=== PATIENT | female | born 1980 | race African-American/Black ===

== ENCOUNTER 2017-09-18 12:00 | Emergency (ER) | payer OTHER ==
[~2017-09-18] VITALS: Ht 182.9 cm; Wt 61.2 kg
[~2017-09-18 12:00] MED LIST: AZITHROMYCIN250 MG ORAL; CLINDAMYCIN HC300 MG ORAL; CORTISPORIN EAR10 ML OTIC; IBUPROFEN600 MG ORAL; NKM; PROMETH-CODEIN 65 ML PO; TYLENOL325 MG ORAL
--- NOTE | 2017-09-18 12:30 | Emergency Room Report ---
History of Present Illness General Chief Complaint: Upper Respiratory Illness Present Illness HPI 37 yo female patient presents to ER complaining of cough, ear pain, and dysuria x1 week. Patient reports subjective fever and chills for the "past few days." Reports taking Theraflu and Mucinex for the "past few days". Reports dry cough; denies blood in sputum. Reports chest pain following cough; reports chest pain is reproducible; denies hx of IN, cardiovascular disease, asthma, or PE. Reports frequency, urgency. Denies blood in urine, rash, discharge, or foul smell. Denies SOB, FERGUSON, vision changes, tinnitus. Reports hx of sick contacts. Denies diarrhea, vomiting, rash. Denies recent travel. LMP on August 24, normal for her. Sexually monogamous partner for 12 years, no hx STI, two miscarriages. Allergies: Coded Allergies: PENICILLIN (Verified Allergy, Unknown, 04/15/15) Patient History Past Medical History: see triage record Last Menstrual Period: Aug Reviewed Nursing Documentation: PMH: Agreed, PSxH: Agreed Nursing Documentation-PMH Hx Gastrointestinal Problems: Yes Review of Systems All Other Systems: negative except mentioned in HPI Physical Exam Vital Signs Date Time Temp Pulse Resp B/P (MAP) Pulse Ox O2 Delivery O2 Flow Rate FiO2 09/18/17 12:15 98.2 102 18 136/95 99 Room Air 98.2 Sp02 EP Interpretation: reviewed, normal General Appearance: well appearing, no apparent distress, alert, GCS 15 Head: normocephalic, atraumatic Eyes: bilateral eye normal inspection, bilateral eye PERRL ENT: hearing grossly normal, normal pharynx, no angioedema, normal voice, TMs + canals normal, uvula midline, moist mucus membranes, other - right ear cerumen Neck: full range of motion Respiratory: lungs clear, normal breath sounds, no rhonchi, no respiratory distress, no accessory muscle use, no wheezing, speaking full sentences, other Cardiovascular #1: regular rate, rhythm, no edema Gastrointestinal: non tender, soft, no mass, non-distended, no guarding, no rebound Genitourinary: no CVA tenderness Musculoskeletal: back normal, digits/nails normal, gait/station normal, normal range of motion, non-tender Neurologic: alert, oriented x3, responsive, motor strength/tone normal, sensory intact Psychiatric: mood/affect normal Skin: no rash Lymphatic: no adenopathy Medical Decision Making PA Attestation Dr. Darnell is my supervising Physician whom patient management has been discussed with. Diagnostic Impression: Primary Impression: Dysuria Additional Impressions: Upper respiratory infection Cerumen impaction ER Course Pt presents to ED c/o cough, ear ache, and dysuria. DDX considered but are not limited to influenza, viral URI, strep throat, rhinitis, sinusitis, otitis media, cerumen impaction, UTI. VITAL SIGNS are WNL, patient is afebrile. Patient pulse is 102. On PE, chest is TTP; chest pain likely musculoskeletal in nature secondary to cough, does not require cardiac workup at this time. Patient instructed to take NSAIDs as needed for pain symptoms. Ordered UA and pain medication. Ordered hydrogen peroxide and flushed ear with water. Cerumen still present, able to visualize TM, no erythema, light reflux intact. Will provide cerumenolytic for further treatment. Followup with PCP, discuss referral to ENT. ED COURSE: Cerumen removed from right ear. UA results unremarkable, UTI unlikely, will not treat with abx, provide Pyridium for pain with urination, SE causes urine to change color, f/u with PCP , discuss referral to or OBGYN as needed. Urine negative. Results discussed with patient. Explained likely viral etiology of symptoms, will treat for cough. Sudafed for congestion will help with ear pain. Take Tylenol OTC at home for pain and flu-like symptoms. Patient vital WNL at time of discharge. DISCHARGE: At this time pt is stable for d/c to home. Patient is resting comfortably, in no acute distress, nontoxic appearing. - Rx given for Pyridium for dysuria - Rx given for Debrox for cerumen - Rx given for Promethazine syrup for cough sx. - Rx given for Sudafed for congestion and ear ache Patient to take medications as instructed Will provide with patient care instructions and any necessary prescriptions. Care plan and follow-up instructions provided. Patient instructed to follow-up with primary care provider in 3 - 5 days. Patient questions asked and answered. Patient reports understanding and agreement to treatment plan. ER precautions given. Patient instructed to return to ER immediately for any new or worsening of symptoms including but not limited to increasing SOB, persistent fever. Labs Test 09/18/17 12:30 Urine Color Yellow Urine Appearance Clear Urine pH 6 (4.5-8.0) Urine Specific Williams 1.010 (1.005-1.035) Urine Protein Negative (NEGATIVE) Urine Glucose (UA) Negative (NEGATIVE) Urine Ketones Negative (NEGATIVE) Urine Occult Blood Negative (NEGATIVE) Urine Nitrite Negative (NEGATIVE) Urine Bilirubin Negative (NEGATIVE) Urine Urobilinogen Normal MG/DL (0.0-1.0) Urine Leukocyte Esterase 1+ (NEGATIVE) Urine RBC 0-2 /HPF (0 - 2) Urine WBC 0-2 /HPF (0 - 2) Urine Squamous Epithelial Cells Few /LPF (NONE/OCC) Urine Bacteria Occasional /HPF (NONE) Urine HCG, Qualitative Negative Last Vital Signs Date Time Temp Pulse Resp B/P (MAP) Pulse Ox O2 Delivery O2 Flow Rate FiO2 09/18/17 12:15 98.2 102 18 136/95 99 Room Air 98.2 Disposition: HOME, SELF-CARE Condition: Stable Scripts Pseudoephedrine Hcl* (SUDAFED*) 30 Mg Tablet 30 MG PO Q6H for 5 Days, #20 TAB Prov: Jarrett Fournier 09/18/17 Carbamide Peroxide (DEBROX) 15 Ml Drops 5 DROP BOTH EARS TWICE A DAY for 4 Days, ML 0 Refills Prov: Jarrett Fournier 09/18/17 Promethazine Hcl (PROMETHAZINE HCL*) 6.25 Mg/5 Ml Syrup 5 ML ORAL Q8H, #120 ML 0 Refills Prov: Jarrett Fournier 09/18/17 Phenazopyridine Hcl* (PYRIDIUM*) 100 Mg Tablet 100 MG ORAL THREE TIMES A DAY for 5 Days, #15 TAB Prov: Jarrett Fournier 09/18/17 Patient Instructions: Cerumen Impaction, Dysuria, Upper Respiratory Infection, Adult Additional Instructions: Followup with primary care provider in 3 -5 days. Take medications as directed. Do not use Q-tips. Patient questions asked and answered. ER precautions given, patient instructed to return to ER immediately for any new or worsening of symptoms including but not limited to chest pain, SOB, intractable vomiting. Jarrett Fournier Sep 18, 2017 12:30
[2017-09-18] MEDS ORDERED: Acetaminophen 500mg (ES) tab ORAL ONE (12:45)
[2017-09-18] MEDS ORDERED: Hydrogen Peroxide 473ml Bottle TOPIC ONE (12:45)
[2017-09-18 12:53] LABS: APPEARANCE,URINE CLEAR; BILIRUBIN, URINE NEGATIVE (NEGATIVE); GLUCOSE, URINE (UA) NEGATIVE (NEGATIVE); KETONES,URINE NEGATIVE (NEGATIVE); LEUKOCYTE ESTERASE ,URINE 1+ (NEGATIVE); NITRITE,URINE NEGATIVE (NEGATIVE); PH,URINE 6 (4.5-8.0); PROTEIN,URINE NEGATIVE (NEGATIVE); UROBILINOGEN,URINE NORMAL MG/DL (0.0-1.0)
[2017-09-18 12:56] LABS: COLOR,URINE YELLOW
[2017-09-18] MEDS ORDERED: PSEUDOEPHEDRINE30 MG PO (13:31)
[2017-09-18] MEDS ORDERED: PROMETHAZI6.25 MG/1 ORAL (13:31)
[2017-09-18] MEDS ORDERED: PHENAZOPYRIDIN100 MG ORAL (13:31)
[2017-09-18] MEDS ORDERED: DEBROX15 M1 BOTH EARS (13:31)
[2017-09-18 13:59] VITALS: BP 133/87
== END 2017-09-18 13:30 | disposition home or self-care (01) ==
LOC: EMR 12:33
DX: J06.9 Acute upper respiratory infection, unspecified (principal); R30.0 Dysuria; H61.21 Impacted cerumen, right ear; Z88.0 Allergy status to penicillin
CPT/HCPCS: 81003; 81025; 99284